=== PATIENT | female | born 1975 | race Caucasian/White ===

== ENCOUNTER 2021-01-23 21:08 | Emergency (ER) | payer OTHER ==
[~2021-01-23] VITALS: Ht 165.1 cm; Wt 130.9 kg
[2021-01-24] MEDS ORDERED: VAZALORE81 MG PO (01:29)
[2021-01-24] MEDS ORDERED: PROZAC10 MG PO (01:30)
[2021-01-24] MEDS ORDERED: NAPROXEN500 MG PO (01:30)
[2021-01-24] MEDS ORDERED: DEPAKOTE500 MG PO (01:30)
--- OUTSIDE RECORDS SUMMARY | 2021-01-24 22:14 | XMS ---
PreMana Notification: IRINA GARIBAY Security Nurse Emergency Events No recent Security Events currently on file CRITERIA MET - 6 ED Visits in 6 Months CARE PROVIDERS ABIGAIL MELLO Counselor: Mental Health Current PHONE: [phone] [facility] PHONE: [phone] ABBY NO [facility] Current PHONE: [phone] COLT IRENE Counselor: Mental Health Current PHONE: [phone] JODY HUGHES Nurse Practitioner Current PHONE: [phone] GILMA MONTESINOS Counselor: Mental Health Current PHONE: [phone] JAN SOSA Counselor: Mental Health Current PHONE: [phone] Care Guidelines exist for the following facilities: [facility] ( 08/19/2020 ) Jazlyn VISIT COUNT (12 MO.) [facility] [address] [place] [id number] EUSEBIO [place] TOTAL 20 NOTE: Visits indicate total known visits. ED/UCC VISIT TRACKING (12 MO.) 01/23/2021 21:09 [facility] [place] TYPE: Emergency COMPLAINT: - PSYCHOLOGICAL EVALUATION 12/04/2020 20:56 Sarah GONZALEZ TYPE: Emergency COMPLAINT: - CRISIS DIAGNOSES: - Other usp (current) drug therapy - Suicidal ideations - Homelessness 10/30/2020 18:18 Sarah GONZALEZ TYPE: Emergency COMPLAINT: - NAUSEA DIAGNOSES: - Epilepsy, unspecified, not intractable, without status epilepticus - Other stimulant dependence, in remission - Other medical terminologist (current) drug therapy - Nicotine dependence, cigarettes, uncomplicated - residential (current) use of inhaled steroids - Dental caries, unspecified - residential (current) use of aspirin 10/23/2020 19:30 Sarah GONZALEZ TYPE: Emergency COMPLAINT: - SEIZURE DIAGNOSES: - intermediate manager (current) use of inhaled steroids - Nicotine dependence, cigarettes, uncomplicated - Unspecified convulsions - Other stimulant dependence, in remission - Encounter for issue of repeat prescription - intermediate manager (current) use of aspirin - Other usp (current) drug therapy 09/27/2020 12:46 [facility] Leslie GONZALEZ TYPE: Emergency DIAGNOSES: - Knee Pain - Fatigue 09/12/2020 23:03 Sarah GONZALEZ TYPE: Emergency COMPLAINT: - DIZZY DIAGNOSES: - Other medical terminologist (current) drug therapy - Dizziness and giddiness - Other stimulant dependence, in remission - Nicotine dependence, cigarettes, uncomplicated - Encounter for issue of repeat prescription - intermediate manager (current) use of aspirin [facility]2020 [facility] DIAGNOSES: - Medical Clearance - Major depressive disorder, single episode, unspecified - Suicidal ideations 08/20/2020 22:25 Sarah GONZALEZ TYPE: Emergency COMPLAINT: - FELL,RT KNEE PAIN DIAGNOSES: - Sprain of unspecified ligament of right ankle, initial encounter - residential (current) use of inhaled steroids - Nicotine dependence, cigarettes, uncomplicated - intermediate manager (current) use of opiate analgesic - Fall (on) (from) unspecified stairs and steps, initial encounter - residential (current) use of aspirin - Other medical terminologist (current) drug therapy - Sprain of unspecified site of right knee, initial encounter 08/19/2020 18:49 Sarah GONZALEZ TYPE: Emergency COMPLAINT: - ABD PAIN,VOMITING WHITE AND GREEN STUFF DIAGNOSES: - Vomiting, unspecified - intermediate manager (current) use of opiate analgesic - residential (current) use of inhaled steroids - Nicotine dependence, cigarettes, uncomplicated 08/18/2020 21:54 Sarah GONZALEZ TYPE: Emergency COMPLAINT: - SUICIDAL THOUGHTS DIAGNOSES: - Procedure and treatment not carried out due to patient leaving prior to being seen by health care provider 08/18/2020 04:32 Sarah GONZALEZ TYPE: Emergency COMPLAINT: - SUICIDAL THOUGHTS DIAGNOSES: - intermediate manager (current) use of opiate analgesic - Nicotine dependence, cigarettes, uncomplicated - residential (current) use of inhaled steroids - Suicidal ideations - Malingerer [conscious simulation] - residential (current) use of aspirin - Other medical terminologist (current) drug therapy 08/01/2020 21:01 Sarah GONZALEZ TYPE: Emergency COMPLAINT: - LEFT SIDE NUMBNESS DIAGNOSES: - Polyneuropathy, unspecified - Morbid (severe) obesity due to excess calories - Nicotine dependence, cigarettes, uncomplicated - Homelessness - intermediate manager (current) use of opiate analgesic - intermediate manager (current) use of inhaled steroids - residential (current) use of aspirin - Unspecified osteoarthritis, unspecified site - Other stimulant dependence, in remission - Personal history of transient ischemic attack (TIA), and cerebral infarction without residual deficits 07/25/2020 16:19 Sarah GONZALEZ TYPE: Emergency COMPLAINT: - KNEE PAIN DIAGNOSES: - Strain of other muscle(s) and tendon(s) at lower leg level, right leg, initial encounter - residential (current) use of inhaled steroids - Nicotine dependence, cigarettes, uncomplicated - Other usp (current) drug therapy - intermediate manager (current) use of aspirin 07/19/2020 18:11 Sarah GONZALEZ TYPE: Emergency COMPLAINT: - RIGHT HAND POINTER FINGER INJ DIAGNOSES: - Unspecified sprain of right index finger, initial encounter - Other usp (current) drug therapy - Nicotine dependence, cigarettes, uncomplicated - residential (current) use of aspirin - intermediate manager (current) use of inhaled steroids 07/11/2020 13:03 Sarah GONZALEZ TYPE: Emergency COMPLAINT: - SMASHED FINGER DIAGNOSES: - Other medical terminologist (current) drug therapy - Displaced fracture of distal phalanx of left index finger, initial encounter for closed fracture - residential (current) use of aspirin - Nicotine dependence, cigarettes, uncomplicated - residential (current) use of inhaled steroids 07/08/2020 18:37 Sarah GONZALEZ TYPE: Emergency COMPLAINT: - STROKE 06/06/2020 19:09 [facility] DIAGNOSES: - Problem related to unspecified psychosocial circumstances - Suicidal ideations - Medical Clearance 06/05/2020 00:42 [facility] DIAGNOSES: - Seizure (Adult - Prior Hx Of) - Unspecified convulsions 04/27/2020 22:36 [facility] CARLOS Nelson TYPE: Emergency DIAGNOSES: - Hyperglycemia - CODE 1 - Unspecified abdominal pain - Abdominal Pain 04/20/2020 12:33 [facility] CARLOS Nelson TYPE: Emergency DIAGNOSES: - Bronchitis, not specified as acute or chronic - Sore throat - Contact with and (suspected) exposure to other viral communicable diseases - Cough - Acute upper respiratory infection, unspecified INPATIENT VISIT TRACKING (12 MO.) 09/05/2020 22:40 Sarah GONZALEZ TYPE: Critical Care COMPLAINT: - SUICIDAL IDEATION AND MEDICATION MANAGEMENT DIAGNOSES: - Bipolar II disorder - Bipolar II disorder - Anxiety disorder, unspecified 07/08/2020 19:53 Sarah GONZALEZ TYPE: Medical Surgical COMPLAINT: - TIA DIAGNOSES: - Major depressive disorder, recurrent, moderate - Obstructive sleep apnea (adult) (pediatric) - Other generalized epilepsy and epileptic syndromes, not intractable, without status epilepticus - Migraine, unspecified, not intractable, without status migrainosus - Bradycardia, unspecified - Type 2 diabetes mellitus with hyperglycemia - Sleep apnea, unspecified - Chronic obstructive pulmonary disease, unspecified - Transient cerebral ischemic attack, unspecified - Body mass index [BMI] 50.0-59.9, adult - Cerebral infarction, unspecified - Homelessness - Ho's palsy - Morbid (severe) obesity due to excess calories - Other stimulant abuse, uncomplicated - Personal history of transient ischemic attack (TIA), and cerebral infarction without residual deficits - NIHSS score 2 - Nicotine dependence, cigarettes, uncomplicated 06/07/2020 02:52 Sarah GONZALEZ TYPE: Critical Care COMPLAINT: - CRISIS STABILIZATION DIAGNOSES: - Major depressive disorder, single episode, unspecified - Major depressive disorder, single episode, unspecified - Anxiety disorder, unspecified [email or web address]
== END 2021-01-24 22:12 | disposition home or self-care (01) ==
LOC: ED 21:08
DX: R45.851 Suicidal ideations (principal); J44.9 Chronic obstructive pulmonary disease, unspecified; E11.9 Type 2 diabetes mellitus without complications; J45.909 Unspecified asthma, uncomplicated; Z20.822 Contact with and (suspected) exposure to COVID-19; Z88.2 Allergy status to sulfonamides; Z91.013 Allergy to seafood; Z88.0 Allergy status to penicillin; Z91.040 Latex allergy status; Z88.5 Allergy status to narcotic agent; Z88.8 Allergy status to other drugs, medicaments and biological substances; Z79.82 Long term (current) use of aspirin; Z79.899 Other long term (current) drug therapy; Z91.018 Allergy to other foods
CPT/HCPCS: 80053; 81001; 84443; 84703; 85025; 99285; C9803; G0480; U0003